=== PATIENT | male | born 2000 | race Caucasian/White ===

== ENCOUNTER → 2020-08-21 | Outpatient (CLI) | payer BC ==
--- NOTE | 2020-08-21 16:02 | REP ---
INDICATION: SPRAIN COMPARISON: None. TECHNIQUE: Four views left ankle. FINDINGS: There is no evidence of acute fracture, dislocation, or intrinsic bone disease.There is mild to moderate lateral soft tissue swelling. The ankle mortise is anatomic. IMPRESSION: No fracture or dislocation. <Electronically signed by Fermín Elkins > 08/21/20 [id number]
== END ==
LOC: M WUC 15:39
PROVIDERS: ATTEND Physician Assistant
DX: S93.402A Sprain of unspecified ligament of left ankle, initial encounter (principal); X58.XXXA Exposure to other specified factors, initial encounter; Y92.9 Unspecified place or not applicable

== ENCOUNTER → 2024-03-08 | Outpatient (REF) | payer BC | LOC: M LAB REF 20:49 | PROVIDERS: ATTEND Physician Assistant Medical | DX: J02.9 Acute pharyngitis, unspecified (principal); R50.9 Fever, unspecified ==